=== PATIENT | male | born 1945 | race Caucasian/White ===

== ENCOUNTER 2021-09-13 10:30 | Outpatient (CLI) | payer MEDICARE, BC ==
[~2021-09-13 10:30] MED LIST: ACLI400A3 IH; ADV50250 IH; ASPI-611 PO; CPAP; FAMO20TA8 PO; FERR325T39 PO; LEVO150T73 PO; LOSA100T13 PO; LOVA10TA56 PO; METO-539 PO; MONT10TA21 PO; PARO40TA45 PO; PRED10TA PO
[2021-09-13 11:16] LABS: BASOPHILS # (AUTO) 0.1 X10'3 (0-0.2); BASOPHILS % (AUTO) 0.5 % (0-1); EOSINOPHILS # (AUTO) 0.1 X10'3 (0-0.9); EOSINOPHILS % (AUTO) 0.7 % (0-6); HEMATOCRIT 37.1 % (42.0-52.0); HEMOGLOBIN 12.3 g/dl (14.0-17.9); LYMPHOCYTES # (AUTO) 0.8 X10'3 (1.1-4.8); LYMPHOCYTES % (AUTO) 6.1 % (21-51); MEAN CORPUSCULAR HEMOGLOBIN 29.2 PG (27.0-31.0); MEAN CORPUSCULAR HGB CONC 33.1 g/dL (33.0-36.5); MEAN CORPUSCULAR VOLUME 88.2 FL (78-98); MEAN PLATELET VOLUME 8.4 FL (7.4-10.4); MONOCYTES # (AUTO) 0.4 X10'3 (0-0.9); MONOCYTES % (AUTO) 3.1 % (2-12); NEUTROPHILS # (AUTO) 11.7 X10'3 (1.8-7.7); NEUTROPHILS % (AUTO) 89.6 % (42-75); PLATELET COUNT 258 X10'3 (140-440); RED BLOOD COUNT 4.21 X10'6 (4.70-6.10); RED CELL DISTRIBUTION WIDTH 14.8 % (11.5-14.5)
[2021-09-13 11:23] LABS: ALBUMIN 3.6 G/DL (3.4-5.0); ANION GAP 6 (8-16); BLOOD UREA NITROGEN 15 MG/DL (7-18); BUN/CREATININE RATIO 20.3 (5.4-32.0); CALCIUM 8.8 MG/DL (8.5-10.1); CHLORIDE 103 MMOL/L (99-107); CREATININE 0.74 MG/DL (0.60-1.10); GLUCOSE 143 MG/DL (70-104); PARTIAL THROMBOPLASTIN TIME 26 SECONDS (22-32); POTASSIUM 4.5 MMOL/L (3.5-5.1); SODIUM 141 MMOL/L (135-145); TOTAL CARBON DIOXIDE 31.6 MMOL/L (24-32); eGFR > 90 ML/MIN
== END 2021-09-13 23:59 | disposition home or self-care (01) ==
LOC: LAB 10:30
PROVIDERS: ATTEND Internal Medicine Interventional Cardiology
DX: I10 Essential (primary) hypertension (principal); R06.02 Shortness of breath
CPT/HCPCS: 36415; 80048; 85025; 85610; 85730

== ENCOUNTER 2021-09-17 11:57 | Day surgery (SDC) | payer MEDICARE, BC ==
[2021-09-17] VITALS (7 sets, daily range): BP systolic 103–153; BP diastolic 57–97
[~2021-09-17] VITALS: Ht 167.6 cm; Wt 72.7 kg
[2021-09-17] MEDS ORDERED: ALBU18HF2 INH (12:45)
[2021-09-17] MEDS ORDERED: ASPI-1265 PO (12:45)
[2021-09-17] MEDS ORDERED: METO-395 PO (12:45)
[2021-09-17] MEDS ORDERED: diphenhydrAMINE 25mg capsule PO PRN (12:55)
[2021-09-17] MEDS ORDERED: normal saline 1,000 ML IV SCH (12:55)
[2021-09-17] MEDS ORDERED: LORazepam 0.5 MG tablet PO PRN (12:55)
[2021-09-17] MEDS ORDERED: midazolam 1 mg/ML 2ml injection ONE (13:38)
[2021-09-17] MEDS ORDERED: LIDOcaine 1% (10mg/ml)w/preservative injection 20ml MDV ONE (13:38)
[2021-09-17] MEDS ORDERED: nitroGLYCERIN-Tridil 50MG/D5W 250 ML IV ONE (13:38)
[2021-09-17] MEDS ORDERED: heparin 1,000unit/ml 10ml vial 10 ML ONE (13:38)
[2021-09-17] MEDS ORDERED: verapamil 2.5 mg/ml inj IV ONE (13:38)
[2021-09-17] MEDS ORDERED: fentaNYL/PF 50MCG/1 ML 2ML syringe ONE (13:38)
[2021-09-17] MEDS ORDERED: iohexol 350MG/ML 100ml bottle IV ONE (13:38)
[2021-09-17] MEDS ORDERED: proCHLORperazine 10 MG/2 ml inj IV PRN (14:55)
[2021-09-17] MEDS ORDERED: ondansetron/PF 4mg/2ml inj IV PRN (14:55)
[2021-09-17] MEDS ORDERED: HYDROcodone/acetaminophen 5mg/325mg tablet PO PRN (14:55)
[2021-09-17] MEDS ORDERED: OXAZEpam 15mg capsule PO PRN (14:55)
[2021-09-17] MEDS ORDERED: HYDROcodone/acetaminophen 10/325mg tab PO PRN (14:55)
[2021-10-10] MEDS ORDERED: LOVA20TA2 PO (15:51)
[2021-10-10] MEDS ORDERED: IPRA3AMP9 IH (15:51)
== END 2021-09-17 17:25 | disposition home or self-care (01) ==
LOC: SSTAY O 11:57
PROVIDERS: ATTEND Internal Medicine Interventional Cardiology
DX: I35.0 Nonrheumatic aortic (valve) stenosis (principal); I25.10 Atherosclerotic heart disease of native coronary artery without angina pectoris; J44.9 Chronic obstructive pulmonary disease, unspecified; G47.33 Obstructive sleep apnea (adult) (pediatric); I11.0 Hypertensive heart disease with heart failure; I50.9 Heart failure, unspecified; I65.29 Occlusion and stenosis of unspecified carotid artery; I44.7 Left bundle-branch block, unspecified; E03.9 Hypothyroidism, unspecified; Z79.899 Other long term (current) drug therapy; Z88.1 Allergy status to other antibiotic agents; Z87.891 Personal history of nicotine dependence
CPT/HCPCS: 93005; 93454; 99152; C1769; C1894; J1644; J2250; J3010; J3490; J7030; Q0163; Q9967; 93458; 99153; A4620; A5120

== ENCOUNTER → 2021-10-02 | Outpatient (CLI) | payer MEDICARE, BC ==
[~2021-10-02] VITALS: Ht 167.6 cm; Wt 71.2 kg
[~2021-10-02] MED LIST changes: +ALBU18HF2 INH; +ASPI-1265 PO; -ASPI-611 PO; -CPAP; -FAMO20TA8 PO; +IODIXANOL 320 MG/ML INFUS..BTL 100ML IV ONE; +IODIXANOL 320 MG/ML INFUS..BTL 50ML IV ONE; +METO-395 PO; -METO-539 PO; +albuterol 2.5 MG/3 ML nebule NEB ONE
[2021-10-02 10:41] LABS: APTT 25 SECONDS (22-32)
[2021-10-02 10:42] LABS: ALANINE AMINOTRANSFERASE 29 U/L (12-78); ALBUMIN 3.4 G/DL (3.4-5.0); ALBUMIN/GLOBULIN RATIO 0.9 (1.1-1.5); ALKALINE PHOSPHATASE 63 IU/L (46-116); ANION GAP 5 (8-16); ASPARTATE AMINO TRANSFERASE 29 U/L (10-37); BILIRUBIN,TOTAL 0.3 MG/DL (0.1-1.0); BLOOD UREA NITROGEN 17 MG/DL (7-18); BUN/CREATININE RATIO 25.4 (5.4-32.0); CALCIUM 8.9 MG/DL (8.5-10.1); CHLORIDE 105 MMOL/L (99-107); CREATININE 0.67 MG/DL (0.60-1.10); GLUCOSE 120 MG/DL (70-104); POTASSIUM 3.8 MMOL/L (3.5-5.1); SODIUM 144 MMOL/L (135-145); TOTAL CARBON DIOXIDE 34.5 MMOL/L (24-32); eGFR > 90 ML/MIN
[2021-10-02 10:44] LABS: BASOPHILS # (AUTO) 0.1 X10'3 (0-0.2); BASOPHILS % (AUTO) 0.6 % (0-1); EOSINOPHILS # (AUTO) 0.2 X10'3 (0-0.9); EOSINOPHILS % (AUTO) 1.6 % (0-6); HEMATOCRIT 36.7 % (42.0-52.0); HEMOGLOBIN 12.1 g/dl (14.0-17.9); LYMPHOCYTES # (AUTO) 1.1 X10'3 (1.1-4.8); LYMPHOCYTES % (AUTO) 8.1 % (21-51); MEAN CORPUSCULAR HEMOGLOBIN 28.8 PG (27.0-31.0); MEAN CORPUSCULAR HGB CONC 32.9 g/dL (33.0-36.5); MEAN CORPUSCULAR VOLUME 87.6 FL (78-98); MEAN PLATELET VOLUME 8.4 FL (7.4-10.4); MONOCYTES # (AUTO) 0.8 X10'3 (0-0.9); MONOCYTES % (AUTO) 5.9 % (2-12); NEUTROPHILS # (AUTO) 11.4 X10'3 (1.8-7.7); NEUTROPHILS % (AUTO) 83.8 % (42-75); PLATELET COUNT 242 X10'3 (140-440); RED BLOOD COUNT 4.19 X10'6 (4.70-6.10); RED CELL DISTRIBUTION WIDTH 14.9 % (11.5-14.5); WHITE BLOOD COUNT 13.6 X10'3 (4.5-11.0)
[2021-10-02 11:43] LABS: ABG BASE EXCESS -0.4 mmol/L (-2.0-2.0); ABG HCO3 24.3 mmol/L (22.0-26.0); ABG OXYGEN SATURATION 94.2 % (94-97); ABG PCO2 (T) 40.2 mmHg (35.0-48.0); ABG PO2 (T) 69.7 mmHg (75.0-100.0); ALLEN'S TEST POSITIVE; FCOHb 0.4 % (0.0-3.9); FO2Hb 93.8 % (94-97); TOTAL HEMOGLOBIN 12.6 G/dl (14.0-18.0)
== END | disposition home or self-care (01) ==
LOC: RAD 09:57
PROVIDERS: ATTEND Internal Medicine Cardiovascular Disease
DX: T17.890A Other foreign object in other parts of respiratory tract causing asphyxiation, initial encounter (principal); M62.58 Muscle wasting and atrophy, not elsewhere classified, other site; N40.0 Benign prostatic hyperplasia without lower urinary tract symptoms; K57.30 Diverticulosis of large intestine without perforation or abscess without bleeding; I70.1 Atherosclerosis of renal artery; I70.8 Atherosclerosis of other arteries; J43.2 Centrilobular emphysema; I25.10 Atherosclerotic heart disease of native coronary artery without angina pectoris; R94.2 Abnormal results of pulmonary function studies; X58.XXXA Exposure to other specified factors, initial encounter; Y93.89 Activity, other specified; Y92.89 Other specified places as the place of occurrence of the external cause; Y99.8 Other external cause status; Z20.822 Contact with and (suspected) exposure to COVID-19
CPT/HCPCS: 36415; 36600; 71046; 71275; 74174; 80053; 82803; 85018; 85025; 85610; 85730; 87635; 94060; 94727; 94729; 94760; C9803; Q9967

== ENCOUNTER 2022-09-11 14:51 | Emergency (ER) | payer MEDICARE, BC ==
[~2022-09-11] VITALS: Ht 167.6 cm; Wt 65.0 kg
[~2022-09-11 14:51] MED LIST changes: -ACLI400A3 IH; -IODIXANOL 320 MG/ML INFUS..BTL 100ML IV ONE; -IODIXANOL 320 MG/ML INFUS..BTL 50ML IV ONE; +IPRA3AMP9 IH; -LOVA10TA56 PO; +PANT40TA54 PO; +ROSU40TA22 PO; -albuterol 2.5 MG/3 ML nebule NEB ONE
[2022-09-11] MEDS ORDERED: ipratropium/albuterol 3ml nebule NEB ONE (15:25)
[2022-09-11] MEDS ORDERED: nitroGLYCERIN 0.4mg SUBLingual tab SL PRN (15:30)
[2022-09-11] MEDS ORDERED: aspirin 81mg tab.chew PO ONE (15:30)
[2022-09-11 15:42] LABS: BASOPHILS # (AUTO) 0.1 X10'3 (0-0.2); BASOPHILS % (AUTO) 0.6 % (0-1); EOSINOPHILS % (AUTO) 0.3 % (0-6); HEMATOCRIT 32.4 % (42.0-52.0); HEMOGLOBIN 10.3 g/dl (14.0-17.9); LYMPHOCYTES # (AUTO) 0.8 X10'3 (1.1-4.8); LYMPHOCYTES % (AUTO) 6.5 % (21-51); MEAN CORPUSCULAR HEMOGLOBIN 26.7 PG (27.0-31.0); MEAN CORPUSCULAR HGB CONC 31.9 g/dL (33.0-36.5); MEAN CORPUSCULAR VOLUME 83.7 FL (78-98); MEAN PLATELET VOLUME 7.5 FL (7.4-10.4); MONOCYTES # (AUTO) 0.6 X10'3 (0-0.9); MONOCYTES % (AUTO) 5.2 % (2-12); NEUTROPHILS # (AUTO) 10.4 X10'3 (1.8-7.7); NEUTROPHILS % (AUTO) 87.4 % (42-75); PLATELET COUNT 154 X10'3 (140-440); RED BLOOD COUNT 3.87 X10'6 (4.70-6.10); RED CELL DISTRIBUTION WIDTH 17.6 % (11.5-14.5); WHITE BLOOD COUNT 11.9 X10'3 (4.5-11.0)
[2022-09-11 15:53] LABS: D-DIMER 1.06 MG/L FEU (0-0.50)
[2022-09-11 16:04] LABS: ALANINE AMINOTRANSFERASE 26 U/L (12-78); ALBUMIN 3.3 G/DL (3.4-5.0); ALBUMIN/GLOBULIN RATIO 1.3 (1.1-1.5); ALKALINE PHOSPHATASE 57 IU/L (46-116); ANION GAP 9 (8-16); ASPARTATE AMINO TRANSFERASE 27 U/L (10-37); BILIRUBIN,TOTAL 0.5 MG/DL (0.1-1.0); BLOOD UREA NITROGEN 19 MG/DL (7-18); BUN/CREATININE RATIO 24.1 (5.4-32.0); CALCIUM 8.7 MG/DL (8.5-10.1); CHLORIDE 100 MMOL/L (99-107); CREATININE 0.79 MG/DL (0.60-1.10); GLUCOSE 163 MG/DL (70-104); MAGNESIUM 2.3 MG/DL (1.5-2.4); SODIUM 136 MMOL/L (135-145); TOTAL PROTEIN 5.8 G/DL (6.4-8.2); eGFR > 90 ML/MIN
[2022-09-11] MEDS ORDERED: furosemide 10 MG/1 ML 10ml inj IV ONE (16:05)
[2022-09-11 16:09] LABS: TOTAL CELLS COUNTED 100
[2022-09-11 16:10] LABS: ANISOCYTOSIS 1+; PLATELET ESTIMATE NORMAL
[2022-09-11 16:11] LABS: ELLIPTOCYTES FEW; SCHISTOCYTES FEW
[2022-09-11] MEDS ORDERED: magnesium 2GM in 50ml NS 50 ML IV ONE (17:20)
[2022-09-11] MEDS ORDERED: albuterol 2.5 MG/3 ML nebule NEB ONE (17:20)
[2022-09-11] MEDS ORDERED: HYDR-3965 PO (17:49)
[2022-09-11] MEDS ORDERED: HYDROcodone/acetaminophen 5mg/325mg tablet PO ONE (17:55)
[2022-09-11 18:03] VITALS: BP 110/79
== END 2022-09-11 18:38 | disposition home or self-care (01) ==
LOC: ER 14:52
DX: J96.11 Chronic respiratory failure with hypoxia (principal); Z20.822 Contact with and (suspected) exposure to COVID-19; E78.00 Pure hypercholesterolemia, unspecified; E03.9 Hypothyroidism, unspecified; F32.A Depression, unspecified; Z88.1 Allergy status to other antibiotic agents; Z88.8 Allergy status to other drugs, medicaments and biological substances; Z79.899 Other long term (current) drug therapy; Z90.49 Acquired absence of other specified parts of digestive tract
CPT/HCPCS: 94640; 96365; 96375; 99285; J1940; J3475; 36415; 71045; 71275; 80053; 83735; 83880; 84484; 85007; 85025; 85379; 87811; 93005

== ENCOUNTER 2022-12-29 13:19 | Inpatient (IN) | payer MEDICARE, BC ==
[~2022-12-29] VITALS: Ht 167.6 cm; Wt 62.7 kg
[~2022-12-29 13:19] MED LIST changes: -ASPI-1265 PO; +MONT-48 PO; -MONT10TA21 PO
[2022-12-29] MEDS ORDERED: magnesium 2GM in 50ml NS 50 ML IV ONE (13:55)
[2022-12-29] MEDS ORDERED: methylPREDNISolone sod succ 125mg/2ml vial IV ONE (13:55)
[2022-12-29] MEDS ORDERED: furosemide 10 MG/1 ML 10ml inj IV ONE (13:55)
[2022-12-29] MEDS ORDERED: CefTRIAXone 2gm/D5W 50ml BAG 50 ML IV ONE (13:55)
[2022-12-29] MEDS ORDERED: albuterol 2.5 MG/3 ML nebule CONTNEB PRN (13:55)
[2022-12-29] MEDS ORDERED: normal saline 1000ML IV soln IV ONE (13:55)
[2022-12-29 14:01] LABS: BASOPHILS # (AUTO) 0.1 X10'3 (0-0.2); BASOPHILS % (AUTO) 0.6 % (0-1); EOSINOPHILS # (AUTO) 0.1 X10'3 (0-0.9); EOSINOPHILS % (AUTO) 0.4 % (0-6); HEMATOCRIT 37.8 % (42.0-52.0); HEMOGLOBIN 12.3 g/dl (14.0-17.9); LYMPHOCYTES # (AUTO) 0.5 X10'3 (1.1-4.8); LYMPHOCYTES % (AUTO) 2.9 % (21-51); MEAN CORPUSCULAR HEMOGLOBIN 27.7 PG (27.0-31.0); MEAN CORPUSCULAR HGB CONC 32.4 g/dL (33.0-36.5); MEAN CORPUSCULAR VOLUME 85.6 FL (78-98); MEAN PLATELET VOLUME 8.1 FL (7.4-10.4); MONOCYTES # (AUTO) 0.6 X10'3 (0-0.9); MONOCYTES % (AUTO) 3.8 % (2-12); NEUTROPHILS # (AUTO) 14.7 X10'3 (1.8-7.7); NEUTROPHILS % (AUTO) 92.3 % (42-75); PLATELET COUNT 170 X10'3 (140-440); RED BLOOD COUNT 4.42 X10'6 (4.70-6.10); RED CELL DISTRIBUTION WIDTH 18.2 % (11.5-14.5); WHITE BLOOD COUNT 15.9 X10'3 (4.5-11.0)
[2022-12-29 14:23] LABS: ABG BASE EXCESS 14.3 mmol/L (-2.0-2.0); ABG HCO3 39.9 mmol/L (22.0-26.0); ABG OXYGEN SATURATION 98.3 % (94-97); ABG PCO2 (T) 51.8 mmHg (35.0-48.0); ABG PO2 (T) 116.1 mmHg (75.0-100.0); ALLEN'S TEST POSITIVE; FCOHb 1.1 % (0.0-3.9); FLOW 4 L/min; FMetHb 0.3 % (0.0-1.5); FO2Hb 96.9 % (94-97); PATIENT TEMPERATURE 36.8; TOTAL HEMOGLOBIN 14.6 G/dl (14.0-17.9)
[2022-12-29 14:36] LABS: ALANINE AMINOTRANSFERASE 32 U/L (12-78); ALBUMIN 3.1 G/DL (3.4-5.0); ALBUMIN/GLOBULIN RATIO 0.8 (1.1-1.5); ALKALINE PHOSPHATASE 79 IU/L (46-116); ANION GAP 6 (8-16); ASPARTATE AMINO TRANSFERASE 25 U/L (10-37); BILIRUBIN,TOTAL 0.9 MG/DL (0.1-1.0); BLOOD UREA NITROGEN 24 MG/DL (7-18); BUN/CREATININE RATIO 31.6 (10.0-20.0); CALCIUM 9.5 MG/DL (8.5-10.1); CHLORIDE 95 MMOL/L (99-107); CREATININE 0.76 MG/DL (0.60-1.10); GLUCOSE 188 MG/DL (70-104); POTASSIUM 3.3 MMOL/L (3.5-5.1); SODIUM 140 MMOL/L (135-145); TOTAL PROTEIN 7.2 G/DL (6.4-8.2); eGFR > 90 ML/MIN
[2022-12-29] MEDS ORDERED: ipratropium/albuterol 3ml nebule NEB ONE (15:35)
[2022-12-29] MEDS ORDERED: ondansetron/PF 4mg/2ml inj IV PRN (15:55)
[2022-12-29] MEDS ORDERED: magnesium 2GM in 50ml NS 50 ML IV PRN (15:55)
[2022-12-29] MEDS ORDERED: HYDROcodone/acetaminophen 5mg/325mg tablet PO PRN (15:55)
[2022-12-29] MEDS ORDERED: PERFLUTREN PROTEIN-A MICROSPHR (Optison) 0.22 MG/ML 3ML VIAL IV ONE (15:55)
[2022-12-29] MEDS ORDERED: magnesium 4gm in 100ml NS 100 ML IV PRN (15:55)
[2022-12-29] MEDS ORDERED: magnesium Cl slow-release 64mg tablet PO PRN (15:55)
[2022-12-29] MEDS ORDERED: potassium Cl 40MEQ/1/2NS 520ml 520 ML IV PRN (15:55)
[2022-12-29] MEDS ORDERED: potassium Cl 20 mEq SR tablet PO PRN (15:55)
[2022-12-29] MEDS ORDERED: acetaminophen 325mg tablet PO PRN ×2 (15:55)
[2022-12-29 18:27] LABS: CLARITY,URINE CLEAR (Clear); COLOR,URINE STRAW (Yellow); GLUCOSE, URINE NEGATIVE (Neg); KETONES,URINE NEGATIVE (Neg); LEUKOCYTE ESTERASE ,URINE NEGATIVE (Neg); NITRITES, URINE NEGATIVE (Neg); OCCULT BLOOD,URINE TRACE-INTACT (Neg); PH,URINE 6.5 (4.8-8.0); PROTEIN,URINE NEGATIVE (Neg); UA COLLECTION TYPE CLN CATCH MIDSTREAM; UROBILINOGEN,URINE 0.2 E.U/dL (0.2-1.0)
[2022-12-29 18:35] LABS: BACTERIA,URINE FEW /HPF (Neg); RBC,URINE 0-2 /HPF (0-2); SQUAMOUS EPITHELIAL CELL,UR FEW /LPF (FEW); WBC,URINE 0-4 /HPF (0-4)
[2022-12-29] MEDS: docusate sod 100mg capsule PO SCH (20:00)
[2022-12-29] MEDS: potassium Cl 20 mEq SR tablet PO PRN (22:59)
[2022-12-29] MEDS: doxycycline inj 100 MG in normal saline 100ml IV soln 100 ML IV SCH (22:59)
[2022-12-29] MEDS: heparin, porcine 5000 units/ml vial SQ SCH (23:12)
[2022-12-29] MEDS: K and/or MAG REPLACEMENT MC SCH (23:22)
[2022-12-29 23:50] VITALS: BP 105/75
[2022-12-30] MEDS: potassium Cl 20 mEq SR tablet PO PRN (03:31)
[2022-12-30 06:00] VITALS: BP 125/85
--- NOTE | 2022-12-30 06:20 | NUR ---
Patient in room ORTHO 4020. I have received report from Vannessa BANUELOS/Mattie RN and had the opportunity to ask questions and assume patient care.
--- NOTE | 2022-12-30 06:30 | NUR ---
Problems reprioritized. Patient report given, questions answered & plan of care reviewed with ROBERT ANDERSON.
[2022-12-30 07:35] LABS: BASOPHILS % (AUTO) 0.4 % (0-1); EOSINOPHILS % (AUTO) 0 % (0-6); HEMATOCRIT 33.5 % (42.0-52.0); LYMPHOCYTES # (AUTO) 0.8 X10'3 (1.1-4.8); LYMPHOCYTES % (AUTO) 6.7 % (21-51); MEAN CORPUSCULAR HEMOGLOBIN 27.9 PG (27.0-31.0); MEAN CORPUSCULAR HGB CONC 32.9 g/dL (33.0-36.5); MEAN CORPUSCULAR VOLUME 84.9 FL (78-98); MEAN PLATELET VOLUME 8.3 FL (7.4-10.4); MONOCYTES # (AUTO) 0.6 X10'3 (0-0.9); MONOCYTES % (AUTO) 5.4 % (2-12); NEUTROPHILS % (AUTO) 87.5 % (42-75); PLATELET COUNT 163 X10'3 (140-440); RED BLOOD COUNT 3.94 X10'6 (4.70-6.10); WHITE BLOOD COUNT 11.4 X10'3 (4.5-11.0)
[2022-12-30 07:51] LABS: ALBUMIN 2.7 G/DL (3.4-5.0); ANION GAP 5 (8-16); BLOOD UREA NITROGEN 23 MG/DL (7-18); BUN/CREATININE RATIO 42.6 (10.0-20.0); CALCIUM 9.2 MG/DL (8.5-10.1); CHLORIDE 96 MMOL/L (99-107); CREATININE 0.54 MG/DL (0.60-1.10); GLUCOSE 130 MG/DL (70-104); MAGNESIUM 3.1 MG/DL (1.5-2.4); POTASSIUM 3.6 MMOL/L (3.5-5.1); SODIUM 139 MMOL/L (135-145); eGFR > 90 ML/MIN
[2022-12-30] MEDS: docusate sod 100mg capsule PO SCH ×2 (07:54→20:43)
[2022-12-30] MEDS: heparin, porcine 5000 units/ml vial SQ SCH ×2 (07:55→20:44)
[2022-12-30] MEDS: K and/or MAG REPLACEMENT MC SCH ×2 (08:00→20:00)
[2022-12-30] MEDS: CefTRIAXone/D5W-Rocephin 1gm 50 ML IV SCH (09:54)
[2022-12-30] MEDS: doxycycline inj 100 MG in normal saline 100ml IV soln 100 ML IV SCH ×2 (09:54→20:44)
--- NOTE | 2022-12-30 09:54 | NUR ---
PAGER ID: [phone] MESSAGE: Iban Dover RM 4026B gram positive coxxi and clusters drawn from R [facility] 12/29 J[facility]6
[2022-12-30 10:00] VITALS: BP 122/77
[2022-12-30] MEDS ORDERED: ROSU40TA22 PO (12:38)
[2022-12-30] MEDS ORDERED: ALBU18HF2 INH (12:38)
[2022-12-30] MEDS ORDERED: SPIR25TA5 PO (12:38)
[2022-12-30] MEDS ORDERED: PRED10TA PO (12:38)
[2022-12-30] MEDS ORDERED: MONT-40 PO (12:39)
[2022-12-30] MEDS ORDERED: LEVO150T8 PO (12:39)
[2022-12-30] MEDS ORDERED: ACLI400A2 INH (12:39)
[2022-12-30] MEDS ORDERED: METO-395 PO (12:39)
[2022-12-30] MEDS ORDERED: FLUT1BLS13 INH (12:39)
[2022-12-30] MEDS ORDERED: FURO40TA4 PO (12:39)
[2022-12-30] MEDS ORDERED: ASPI-1397 PO (12:40)
[2022-12-30] MEDS ORDERED: PANT40TA54 PO (12:40)
[2022-12-30] MEDS ORDERED: PARO40TA4 PO (12:40)
[2022-12-30] MEDS ORDERED: IPRA3AMP31 NEB (12:40)
--- NOTE | 2022-12-30 13:35 | NUR ---
PRESSURE ULCER EDUCATION: DEFINITION: A pressure ulcer is an area of skin that breaks down when you stay in one position too long. The constant pressure against the skin reduces the blood flow to that area and the affected tissue dies. CAUSES: "Being bedridden or in a wheelchair "Fragile skin "Having a chronic condition, such as diabetes or vascular disease "Inability to move certain parts of your body without assistance "Older age "Incontinence of urine or stool SYMPTOMS: "A reddened area that DOES NOT turn white when pressed on - this can be the beginning of a pressure ulcer "A blister, deep sore or a crater - these can be advanced pressure ulcers FIRST AID: "Relieve the pressure on this area "Keep the area clean and dry "Call your primary doctor if you see any of the above symptoms "DO NOT massage the area "DO NOT use a donut shaped or ring shaped pillow- these actually interfere with the blood flow and cause complications PREVENTION: "Check for pressure ulcers everyday "Change position at least every two hours to relieve pressure "Use items that help relieve pressure- pillows, sheepskin, foam padding, and powders. "Keep skin clean and dry "Eat healthy well balanced meals "Exercise daily IF YOU SEE ANY OF THESE SYMPTOMS WHILE IN THE HOSPITAL - TELL YOUR NURSE IMMEDIATELY. IF YOU SEE ANY OF THESE SYMPTOMS WHILE AT HOME OR HAVE ANY QUESTIONS OR CONCERNS ABOUT PRESSURE ULCERS - CALL YOUR PRIMARY DOCTOR IMMEDIATELY. Addendum: 12/30/22 at 1336 by Frances Lopez LVN Amended: Links added.
[2022-12-30 18:00] VITALS: BP 126/78
--- NOTE | 2022-12-30 18:15 | NUR ---
Problems reprioritized. Patient report given, questions answered & plan of care reviewed with Allegra JONES.
--- NOTE | 2022-12-30 19:08 | NUR ---
Problems reprioritized. Patient report given, questions answered & plan of care reviewed with LAKISHA Martinez.
--- NOTE | 2022-12-30 19:24 | NUR ---
Agree with RECORDING STUDIO SETUP WORKER assessment.
--- NOTE | 2022-12-30 19:43 | NUR ---
Patient in room ORTHO 4020. I have received report from sumeet sauceda and had the opportunity to ask questions and assume patient care.
[2022-12-30 22:00] VITALS: BP 131/87
[2022-12-31 06:00] VITALS: BP 137/83
--- NOTE | 2022-12-31 06:00 | NUR ---
Patient in room ORTHO 4020. I have received report from Edgar BANUELOS and had the opportunity to ask questions and assume patient care.
--- NOTE | 2022-12-31 07:01 | NUR ---
Problems reprioritized. Patient report given, questions answered & plan of care reviewed with michaelle apple.
[2022-12-31 07:21] LABS: BASOPHILS % (AUTO) 0.3 % (0-1); EOSINOPHILS # (AUTO) 0.2 X10'3 (0-0.9); EOSINOPHILS % (AUTO) 1.5 % (0-6); HEMATOCRIT 32.3 % (42.0-52.0); HEMOGLOBIN 10.7 g/dl (14.0-17.9); LYMPHOCYTES % (AUTO) 9.7 % (21-51); MEAN CORPUSCULAR HEMOGLOBIN 28.2 PG (27.0-31.0); MEAN CORPUSCULAR HGB CONC 33.2 g/dL (33.0-36.5); MEAN PLATELET VOLUME 8.4 FL (7.4-10.4); MONOCYTES # (AUTO) 0.5 X10'3 (0-0.9); MONOCYTES % (AUTO) 5.2 % (2-12); NEUTROPHILS # (AUTO) 8.7 X10'3 (1.8-7.7); NEUTROPHILS % (AUTO) 83.3 % (42-75); PLATELET COUNT 171 X10'3 (140-440); RED CELL DISTRIBUTION WIDTH 18.4 % (11.5-14.5); WHITE BLOOD COUNT 10.4 X10'3 (4.5-11.0)
[2022-12-31 07:34] LABS: ALBUMIN 2.6 G/DL (3.4-5.0); ANION GAP 4 (8-16); BLOOD UREA NITROGEN 25 MG/DL (7-18); CHLORIDE 99 MMOL/L (99-107); CREATININE 0.51 MG/DL (0.60-1.10); GLUCOSE 100 MG/DL (70-104); MAGNESIUM 2.4 MG/DL (1.5-2.4); POTASSIUM 3.3 MMOL/L (3.5-5.1); SODIUM 141 MMOL/L (135-145); TOTAL CARBON DIOXIDE 37.6 MMOL/L (24-32); eGFR > 90 ML/MIN
[2022-12-31] MEDS: K and/or MAG REPLACEMENT MC SCH ×2 (08:00→20:00)
[2022-12-31] MEDS: doxycycline inj 100 MG in normal saline 100ml IV soln 100 ML IV SCH (08:15)
[2022-12-31] MEDS: docusate sod 100mg capsule PO SCH ×2 (08:16→19:41)
[2022-12-31] MEDS: heparin, porcine 5000 units/ml vial SQ SCH ×2 (08:16→19:52)
[2022-12-31] MEDS: CefTRIAXone/D5W-Rocephin 1gm 50 ML IV SCH (08:19)
[2022-12-31 09:00] VITALS: BP 161/108
[2022-12-31] MEDS ORDERED: DOXY100C2 PO (12:36)
[2022-12-31] MEDS ORDERED: PRED10TA23 PO (12:36)
[2022-12-31 13:00] VITALS: BP 137/95
[2022-12-31] MEDS ORDERED: ipratropium/albuterol 3ml nebule ONE (14:08)
[2022-12-31] MEDS: ipratropium/albuterol 3ml nebule NEB SCH ×2 (14:26→19:22)
--- NOTE | 2022-12-31 16:34 | NUR ---
patient worked with PT. PT and family is recommending patient go to rehab to get stronger. I spoke with md about breathing treatments for patient. per family member patient gets breathing treatments 4 x a day. Rebecca came up to speak with patient and family. respiatory came to do patients treatments.
--- NOTE | 2022-12-31 16:47 | NUR ---
patient wants to be full code not DNR.
[2022-12-31] MEDS: potassium Cl 20 mEq SR tablet PO PRN (17:56)
[2022-12-31] MEDS: DOXYCYCLINE 100MG CAPSULE PO SCH (17:56)
[2022-12-31 18:00] VITALS: BP 109/82
[2022-12-31 22:00] VITALS: BP_SYST 123; BP_SYST 137; BP_DIAS 85; BP_DIAS 95
[2023-01-01 02:00] VITALS: BP 111/82
[2023-01-01] MEDS: potassium Cl 20 mEq SR tablet PO PRN (02:07)
[2023-01-01 06:17] LABS: BASOPHILS # (AUTO) 0.1 X10'3 (0-0.2); BASOPHILS % (AUTO) 0.9 % (0-1); EOSINOPHILS # (AUTO) 0.2 X10'3 (0-0.9); EOSINOPHILS % (AUTO) 1.3 % (0-6); HEMATOCRIT 33.8 % (42.0-52.0); HEMOGLOBIN 11.2 g/dl (14.0-17.9); LYMPHOCYTES % (AUTO) 8.9 % (21-51); MEAN CORPUSCULAR HEMOGLOBIN 28.2 PG (27.0-31.0); MEAN CORPUSCULAR HGB CONC 33.1 g/dL (33.0-36.5); MEAN CORPUSCULAR VOLUME 85.2 FL (78-98); MEAN PLATELET VOLUME 8.8 FL (7.4-10.4); MONOCYTES # (AUTO) 0.6 X10'3 (0-0.9); MONOCYTES % (AUTO) 5.1 % (2-12); NEUTROPHILS # (AUTO) 9.7 X10'3 (1.8-7.7); NEUTROPHILS % (AUTO) 83.8 % (42-75); PLATELET COUNT 180 X10'3 (140-440); RED BLOOD COUNT 3.97 X10'6 (4.70-6.10); RED CELL DISTRIBUTION WIDTH 18.2 % (11.5-14.5); WHITE BLOOD COUNT 11.6 X10'3 (4.5-11.0)
[2023-01-01 06:31] LABS: ALBUMIN 2.5 G/DL (3.4-5.0); ANION GAP 6 (8-16); BLOOD UREA NITROGEN 17 MG/DL (7-18); BUN/CREATININE RATIO 30.9 (10.0-20.0); CALCIUM 8.8 MG/DL (8.5-10.1); CHLORIDE 98 MMOL/L (99-107); CREATININE 0.55 MG/DL (0.60-1.10); GLUCOSE 114 MG/DL (70-104); MAGNESIUM 2.5 MG/DL (1.5-2.4); POTASSIUM 4.3 MMOL/L (3.5-5.1); SODIUM 138 MMOL/L (135-145); eGFR > 90 ML/MIN
--- NOTE | 2023-01-01 06:48 | NUR ---
Patient in room ORTHO 4020. I have received report from Dakota BANUELOS and had the opportunity to ask questions and assume patient care.
[2023-01-01 07:00] VITALS: BP 121/88
[2023-01-01] MEDS: ipratropium/albuterol 3ml nebule NEB SCH ×4 (07:53→21:02)
[2023-01-01] MEDS: docusate sod 100mg capsule PO SCH ×2 (08:00→19:12)
[2023-01-01] MEDS: K and/or MAG REPLACEMENT MC SCH ×2 (08:00→19:12)
[2023-01-01] MEDS: DOXYCYCLINE 100MG CAPSULE PO SCH ×2 (08:11→17:24)
[2023-01-01] MEDS: CefTRIAXone/D5W-Rocephin 1gm 50 ML IV SCH (08:11)
[2023-01-01] MEDS: heparin, porcine 5000 units/ml vial SQ SCH ×2 (08:12→19:12)
--- NOTE | 2023-01-01 13:09 | NUR ---
promotional table spacer promotional table spacer Page Sent promotional table spacer PAGER ID: [phone] MESSAGE: Alberto Dover room 4020B. Code status needs to be updated. Pt is still DNR in system. your notes states pt wants to be full code. Steph [phone]
--- NOTE | 2023-01-01 15:06 | NUR ---
After review I agree with the Physical Assessment charted by LAKISHA Choi. Addendum: 01/01/23 at 1506 by Makenna Connolly RN Amended: Links added.
--- NOTE | 2023-01-01 17:41 | NUR ---
PAGER ID: [phone] MESSAGE: Makenna [phone] RE: Alberto Dover room 4020B - patient has increased SOB - at home on Lasix 40 mg daily. Should we restart Lasix
[2023-01-01 17:52] VITALS: BP 109/75
[2023-01-01 18:00] VITALS: BP 106/79
--- NOTE | 2023-01-01 18:27 | NUR ---
Patient's is reporting that the patient has a history of CHF and that he takes Lasix daily. Paged Dr. Cunningham and notified her of that. Also paged the provider for the second time to change the code in the computer from DNR to Full Code.
--- NOTE | 2023-01-01 18:27 | NUR ---
PAGER ID: [phone] MESSAGE: Makenna [phone] RE: Alberto Dover - can we also change the code to Full Code please. Thank you
--- NOTE | 2023-01-01 18:35 | NUR ---
Problems reprioritized. Patient report given, questions answered & plan of care reviewed with Zacarias BANUELOS.
[2023-01-01] MEDS: furosemide 40mg tablet PO SCH (19:12)
[2023-01-01] MEDS ORDERED: metoprolol tartrate 1mg/ml inj IV ONE (21:55)
[2023-01-01 22:00] VITALS: BP 111/78
[2023-01-01] MEDS: montelukast 10mg tablet PO SCH (22:03)
[2023-01-01] MEDS ORDERED: ROSUVASTATIN CALCIUM 5 MG TABLET PO SCH (22:09)
[2023-01-02 01:50] VITALS: BP 113/83
--- NOTE | 2023-01-02 01:57 | NUR ---
MD Renteria notified about a 28 beat run of vtach which was asymptomatic. Vital signs were within normal limits at that time and patient had no complaints. MD had no orders at this time.
--- NOTE | 2023-01-02 06:15 | NUR ---
Patient in room ORTHO 4020. I have received report from Zacarias BANUELOS and had the opportunity to ask questions and assume patient care.
[2023-01-02 06:43] VITALS: BP 117/86
[2023-01-02 07:36] LABS: BASOPHILS # (AUTO) 0.1 X10'3 (0-0.2); BASOPHILS % (AUTO) 0.8 % (0-1); EOSINOPHILS # (AUTO) 0.1 X10'3 (0-0.9); EOSINOPHILS % (AUTO) 0.9 % (0-6); HEMOGLOBIN 11.4 g/dl (14.0-17.9); LYMPHOCYTES # (AUTO) 1.1 X10'3 (1.1-4.8); MEAN CORPUSCULAR HEMOGLOBIN 27.6 PG (27.0-31.0); MEAN CORPUSCULAR HGB CONC 32.6 g/dL (33.0-36.5); MEAN CORPUSCULAR VOLUME 84.7 FL (78-98); MEAN PLATELET VOLUME 8.7 FL (7.4-10.4); MONOCYTES # (AUTO) 0.7 X10'3 (0-0.9); MONOCYTES % (AUTO) 4.7 % (2-12); NEUTROPHILS # (AUTO) 13.6 X10'3 (1.8-7.7); NEUTROPHILS % (AUTO) 86.6 % (42-75); PLATELET COUNT 202 X10'3 (140-440); RED BLOOD COUNT 4.14 X10'6 (4.70-6.10); RED CELL DISTRIBUTION WIDTH 18.3 % (11.5-14.5); WHITE BLOOD COUNT 15.7 X10'3 (4.5-11.0)
[2023-01-02 07:50] LABS: ALBUMIN 2.6 G/DL (3.4-5.0); ANION GAP 8 (8-16); BLOOD UREA NITROGEN 19 MG/DL (7-18); BUN/CREATININE RATIO 24.1 (10.0-20.0); CALCIUM 9.1 MG/DL (8.5-10.1); CHLORIDE 95 MMOL/L (99-107); CREATININE 0.79 MG/DL (0.60-1.10); GLUCOSE 162 MG/DL (70-104); MAGNESIUM 2.6 MG/DL (1.5-2.4); POTASSIUM 4.6 MMOL/L (3.5-5.1); SODIUM 135 MMOL/L (135-145); TOTAL CARBON DIOXIDE 31.8 MMOL/L (24-32); eGFR > 90 ML/MIN
[2023-01-02] MEDS: K and/or MAG REPLACEMENT MC SCH ×2 (08:00→20:00)
[2023-01-02] MEDS: docusate sod 100mg capsule PO SCH ×2 (08:05→20:05)
[2023-01-02] MEDS: metoprolol tartrate 12.5mg (1/2 tablet) PO SCH (08:05)
[2023-01-02] MEDS: montelukast 10mg tablet PO SCH (08:05)
[2023-01-02] MEDS: DOXYCYCLINE 100MG CAPSULE PO SCH (08:05)
[2023-01-02] MEDS: furosemide 40mg tablet PO SCH (08:05)
[2023-01-02] MEDS: CefTRIAXone/D5W-Rocephin 1gm 50 ML IV SCH (08:06)
[2023-01-02] MEDS: heparin, porcine 5000 units/ml vial SQ SCH ×2 (08:07→20:05)
[2023-01-02] MEDS: ipratropium/albuterol 3ml nebule NEB SCH ×4 (08:09→19:20)
[2023-01-02] MEDS ORDERED: levoFLOXACIN-Levaquin 500mg/D5 100 ML IV SCH (09:40)
[2023-01-02 10:00] VITALS: BP 88/60
--- NOTE | 2023-01-02 10:20 | NUR ---
Page Sent promotional table spacer PAGER ID: [phone] MESSAGE: Steph [phone] Room 4020A Alberto Dover. Can we have order for milk of magnesia please. Thanks
--- NOTE | 2023-01-02 11:37 | NUR ---
Page Sent promotional table spacer PAGER ID: [phone] MESSAGE: Steph [id number] Alberto Dover. Pt needs to go to rehab, needs BM first. Can we have order for bowel care protocol
[2023-01-02] MEDS: levoFLOXACIN-Levaquin 500mg/D5 100 ML IV SCH (11:44)
[2023-01-02] MEDS ORDERED: bisacodyl 10mg suppository rectal RC STA (12:18)
[2023-01-02] MEDS ORDERED: magnesium hydroxide 30ml (MOM) UD suspension PO ONE (12:20)
--- NOTE | 2023-01-02 12:38 | NUR ---
AFTER REVIEW I AGREE WITH THE PHYSICAL ASSESSMENT CHARTED BY CLEMENT BANUELOS. Addendum: 01/02/23 at 1239 by Makenna Connolly RN Amended: Links added.
[2023-01-02 13:13] LABS: ANISOCYTOSIS 2+; PLATELET ESTIMATE NORMAL; TOTAL CELLS COUNTED 100
[2023-01-02 13:14] LABS: ELLIPTOCYTES FEW
[2023-01-02] MEDS ORDERED: atorvastatin 20mg tablet PO SCH (14:01)
[2023-01-02 18:00] VITALS: BP 111/82
[2023-01-02 22:00] VITALS: BP 119/77
[2023-01-03 06:00] VITALS: BP 133/87
[2023-01-03 06:41] LABS: BASOPHILS % (AUTO) 0.3 % (0-1); EOSINOPHILS % (AUTO) 0 % (0-6); HEMATOCRIT 32.7 % (42.0-52.0); HEMOGLOBIN 10.9 g/dl (14.0-17.9); LYMPHOCYTES # (AUTO) 0.9 X10'3 (1.1-4.8); LYMPHOCYTES % (AUTO) 5.9 % (21-51); MEAN CORPUSCULAR HEMOGLOBIN 27.9 PG (27.0-31.0); MEAN CORPUSCULAR HGB CONC 33.3 g/dL (33.0-36.5); MEAN CORPUSCULAR VOLUME 83.9 FL (78-98); MEAN PLATELET VOLUME 8.9 FL (7.4-10.4); MONOCYTES # (AUTO) 0.7 X10'3 (0-0.9); MONOCYTES % (AUTO) 4.5 % (2-12); NEUTROPHILS # (AUTO) 13.2 X10'3 (1.8-7.7); NEUTROPHILS % (AUTO) 89.3 % (42-75); PLATELET COUNT 197 X10'3 (140-440); RED CELL DISTRIBUTION WIDTH 18.2 % (11.5-14.5); WHITE BLOOD COUNT 14.7 X10'3 (4.5-11.0)
[2023-01-03 07:22] LABS: ALBUMIN 2.4 G/DL (3.4-5.0); ANION GAP 6 (8-16); BLOOD UREA NITROGEN 16 MG/DL (7-18); BUN/CREATININE RATIO 20.5 (10.0-20.0); CALCIUM 9.4 MG/DL (8.5-10.1); CHLORIDE 91 MMOL/L (99-107); CREATININE 0.78 MG/DL (0.60-1.10); GLUCOSE 138 MG/DL (70-104); POTASSIUM 4.5 MMOL/L (3.5-5.1); SODIUM 132 MMOL/L (135-145); TOTAL CARBON DIOXIDE 35.5 MMOL/L (24-32); eGFR > 90 ML/MIN
[2023-01-03] MEDS: ipratropium/albuterol 3ml nebule NEB SCH ×2 (07:51→11:50)
[2023-01-03] MEDS: K and/or MAG REPLACEMENT MC SCH (08:00)
[2023-01-03 08:01] LABS: ANISOCYTOSIS 2+; PLATELET ESTIMATE NORMAL; TOTAL CELLS COUNTED 100
[2023-01-03 08:02] LABS: ELLIPTOCYTES FEW
[2023-01-03] MEDS: montelukast 10mg tablet PO SCH (08:35)
[2023-01-03] MEDS: furosemide 40mg tablet PO SCH (08:35)
[2023-01-03] MEDS: docusate sod 100mg capsule PO SCH (08:35)
[2023-01-03] MEDS: metoprolol tartrate 12.5mg (1/2 tablet) PO SCH (08:35)
[2023-01-03] MEDS: levoFLOXACIN-Levaquin 500mg/D5 100 ML IV SCH (08:35)
[2023-01-03] MEDS: heparin, porcine 5000 units/ml vial SQ SCH (08:36)
[2023-01-03 10:00] VITALS: BP 101/75
--- NOTE | 2023-01-03 10:03 | NUR ---
Patient in room ORTHO 4020. I have received report from LAKISHA Duncan and had the opportunity to ask questions and assume patient care.
--- NOTE | 2023-01-03 12:58 | NUR ---
Patient was discharged at [address] [facility] for rehab via [facility]. All lines and tubes including PIV with cannula intact and tele monitor have been removed. Report has been called to the receiving facility. Patient is stable and appropriate for transfer.
== END 2023-01-03 12:00 | DRG 189 ==
LOC: ER 13:20 → ED HOLD 16:05 → ORTHO 4S 23:20
PROVIDERS: ADMIT Internal Medicine; ATTEND Internal Medicine
DX: J96.21 Acute and chronic respiratory failure with hypoxia (principal); G93.41 Metabolic encephalopathy; J44.1 Chronic obstructive pulmonary disease with (acute) exacerbation; R64 Cachexia; I50.22 Chronic systolic (congestive) heart failure; I11.0 Hypertensive heart disease with heart failure; E03.9 Hypothyroidism, unspecified; R62.7 Adult failure to thrive; Z60.2 Problems related to living alone; E78.00 Pure hypercholesterolemia, unspecified; J22 Unspecified acute lower respiratory infection; F32.A Depression, unspecified; K21.9 Gastro-esophageal reflux disease without esophagitis; Z87.891 Personal history of nicotine dependence; Z82.49 Family history of ischemic heart disease and other diseases of the circulatory system; Z90.49 Acquired absence of other specified parts of digestive tract; Z68.22 Body mass index [BMI] 22.0-22.9, adult; Z99.81 Dependence on supplemental oxygen; Z88.1 Allergy status to other antibiotic agents; Z79.899 Other long term (current) drug therapy; Z28.310 Unvaccinated for COVID-19; Z95.2 Presence of prosthetic heart valve
CPT/HCPCS: 36415; 36600; 71045; 80048; 80053; 81001; 82803; 83605; 83735; 83880; 84145; 84443; 84484; 85007; 85018; 85025; 87040; 87077; 87081; 87186; 93005; 93308; 94640; 94760; 96365; 96367; 96375; 97161; 97530; 97535; 99285; A4349; A4615; A6212; A6213; A6222; A6223; A6258; A6449; A7015; G0378; J0696; J1644; J1940; J1956; J2930; J3475; J3490; J7030